=== PATIENT | male | born 1965 | race Two or more races ===

== ENCOUNTER 2018-04-22 19:08 | Emergency (ER) | payer MEDICAID, OTHER ==
[~2018-04-22] VITALS: Ht 160 cm; Wt 97.0 kg
[2018-04-22] MEDS ORDERED: ACET1TAB12 PO (21:02)
[2018-04-22] MEDS ORDERED: HYDROcodone/acetaminophen 10/325mg tab PO ONE (21:25)
[2018-04-22 21:33] VITALS: BP 130/89
== END 2018-04-22 21:35 | disposition home or self-care (01) ==
LOC: ER 19:09
DX: M25.521 Pain in right elbow (principal); Z79.899 Other long term (current) drug therapy; W18.30XA Fall on same level, unspecified, initial encounter; Y93.89 Activity, other specified; Y92.89 Other specified places as the place of occurrence of the external cause; Y99.8 Other external cause status
CPT/HCPCS: 29105; 73080; 99284; A4565; A6449